=== PATIENT | female | born 1950 | race Caucasian/White ===

== ENCOUNTER 2017-06-01 09:14 | Emergency (ER) | payer MEDICARE, BC ==
[2017-06-01 11:11] VITALS: BP 132/79
--- NOTE | 2017-06-01 11:37 | UC ---
Respiratory Complaint HPI - HPI Summary HPI Summary: Cough and congestion for 7 days. No chest pain, sob. She has no known lung disease. - History of Current Complaint Chief Complaint: UCGeneralIllness Stated Complaint: COUGH CONGESTION Time Seen by Provider: 06/01/17 11:00 Hx Obtained From: Patient Onset/Duration: Gradual Onset, Lasting Days Timing: Constant Severity Initially: Moderate Severity Currently: Moderate Character: Cough: Productive - green sputum. Aggravating Factors: Deep Breaths, Recumbent Position Alleviating Factors: OTC Meds Associated Signs And Symptoms: Positive: Chills, Calf Pain, Calf Swelling, URI, Nasal Congestion - Allergies/Home Medications Allergies/Adverse Reactions: Allergies Allergy/AdvReac Type Severity Reaction Status Date / Time No Known Allergies Allergy Verified 06/01/17 11:11 Home Medications: Home Medications Atorvastatin* [Lipitor 10 MG*] 06/01/17 [History] Multiple Vitamins W/ Minerals [Vitamins & Minerals] 06/01/17 [History] PMH/Surg Hx/FS Hx/Imm Hx Previously Healthy: No - high chol. - Surgical History Surgical History: Yes Surgery Procedure, Year, and Place: L FOOT SURGERY - Family History Known Family History: Positive: Other - no related lung disease. - Social History Alcohol Use: Occasionally Substance Use Type: None Smoking Status (MU): Never Smoked Tobacco Review of Systems Constitutional: Fever ENT: Sinus Congestion Respiratory: Cough All Other Systems Reviewed And Are Negative: Yes Physical Exam Triage Information Reviewed: Yes Appearance: Well-Appearing, No Pain Distress, Well-Nourished Vital Signs: Initial Vital Signs Temp 100.5 F 06/01/17 11:05 Pulse 93 06/01/17 11:05 Resp 18 06/01/17 11:05 BP 132/79 06/01/17 11:05 Pulse Ox 99 06/01/17 11:05 Vital Signs Reviewed: Yes Eyes: Positive: Conjunctiva Clear. Negative: Conjunctiva Inflamed ENT: Positive: Pharynx normal, Nasal congestion, TMs normal, Uvula midline. Negative: Pharyngeal erythema, Tonsillar swelling, Tonsillar exudate, Trismus, Muffled voice, Sinus tenderness Neck: Positive: Supple, Nontender, No Lymphadenopathy Respiratory: Positive: Lungs clear, Normal breath sounds, No respiratory distress, No accessory muscle use. Negative: Respiratory distress, Decreased breath sounds, Accessory muscle use, Crackles, Rhonchi, Stridor Cardiovascular: Positive: No Murmur, Pulses Normal, Brisk Capillary Refill Abdomen Description: Positive: Nontender, No Organomegaly. Negative: Distended , Guarding Musculoskeletal: Positive: Strength Intact, ROM Intact, No Edema Neurological: Positive: Alert, Muscle Tone Normal. Negative: Fatigued Skin: Positive: rashes UC Diagnostic Evaluation - Laboratory O2 Sat by Pulse Oximetry: 99 Respiratory Course/Dx - Course Course Of Treatment: Low grade fever day 7. We will start antibiotics if not today then soon. She is aware. She appears non toxic and exam was otherwise normal. - Differential Dx/Diagnosis Provider Diagnoses: acute bronchitis. possible early pneumonia. Discharge - Discharge Plan Condition: Good Disposition: HOME Prescriptions: Azithromyxin RIA (NF) [Z-Ria (Zithromax) 250 mg tabs #6] 2 tab PO .TODAY, THEN 1 DAILY #6 tab Patient Education Materials: Upper Respiratory Infection (ED) Referrals: Marie Quinonez MD [Primary Care Provider] - If Needed Additional Instructions: Take the antibiotic if symptoms do not improve by day #9.
== END 2017-06-01 11:39 | disposition home or self-care (01) ==
LOC: UCCORT 09:14
DX: J20.9 Acute bronchitis, unspecified (principal); E78.00 Pure hypercholesterolemia, unspecified
CPT/HCPCS: 99202; G0463